=== PATIENT | male | born 1995 | race Caucasian/White ===

== ENCOUNTER 2023-08-29 23:17 | Emergency (ER) | payer SELFPAY ==
[2023-08-29] MEDS: Ketorolac 30 MG/ML SDV IM ONE (23:34)
== END 2023-08-30 01:20 | disposition home or self-care (01) ==
LOC: MW.ED 23:17
DX: S46.912A Strain of unspecified muscle, fascia and tendon at shoulder and upper arm level, left arm, initial encounter (principal); Z79.899 Other long term (current) drug therapy; Z75.8 Other problems related to medical facilities and other health care; Y09 Assault by unspecified means
CPT/HCPCS: 73030; 96372; 99283; J1885